=== PATIENT | male | born 1985 | race Caucasian/White ===

== ENCOUNTER 2023-06-15 13:05 | Inpatient (IN) | payer BC ==
[2023-06-15] MEDS ORDERED: AZITHROMYCIN 500 MG INJ IVPB ONE ×2 (13:35→14:30)
[2023-06-15] MEDS ORDERED: NA CHLORIDE 0.9% 1,000 ML ONE ×2 (13:35→14:30)
[2023-06-15] MEDS ORDERED: NA CHLORIDE 0.9% 250 ML ONE ×2 (13:35→14:30)
[2023-06-15] MEDS ORDERED: CEFTRIAXONE 1000 MG/VIAL ONE ×2 (13:35→14:30)
[2023-06-15] MEDS ORDERED: METHYLPREDNISOLONE 125 MG INJ ONE (13:35)
[2023-06-15] MEDS ORDERED: HYDROCODONE/CHLORPHEN 5 ML/OSYR ONE (13:35)
[2023-06-15 13:49] LABS: Absolute Lymphocytes (CBC) 1.8 K/uL (0.7-4.9); Hematocrit 43.2 % (39.6-49.0); Lymphocytes % 11.9 % (15.3-44.8); MCV 82.9 fL (80-100); MPV 9.1 fL (7.6-11.3); Platelets 123 thou/uL (152-406); RBC Red Blood Cell Count 5.21 M/uL (4.33-5.43)
[2023-06-15] MEDS ORDERED: ONDANSETRON 4 MG/2 ML VIAL ONE (13:49)
--- NOTE | 2023-06-15 13:59 | EDPHYS ---
Physician Documentation [facility] Name: Juan Avila Age: 37 yrs Sex: Male : 1985 Arrival Date: 06/15/2023 Time: 13:05 Bed 5 Private MD: ED Physician Jose Oliver HPI: 06/15 13:52 This 37 yrs old Male presents to ER via Ambulatory with complaints of paige Shortness Of Breath. 13:52 The patient has shortness of breath with light activity. Onset: The symptoms/episode paige began/occurred 3 day(s) ago. Duration: The symptoms are continuous, and are steadily getting worse. The patient's shortness of breath is aggravated by coughing, walking, is alleviated by elevating head, nebulizer treatment, application of supplemental oxygen. Associated signs and symptoms: Pertinent positives: non-productive cough, dizziness, fever. Severity of symptoms: At their worst the symptoms were mild moderate in the emergency department the symptoms are unchanged. The patient has experienced similar episodes in the past, a few times. Historical: - Allergies: 13:18 No Known Allergies; iw - Home Meds: 13:18 None [Active]; iw - PMHx: 13:18 None; iw - PSHx: 13:18 Appendectomy; iw - Immunization history:: Adult Immunizations not up to date. - Social history:: Smoking status: Patient reports the use of cigarette tobacco products. ROS: 13:53 Constitutional: Negative for fever, chills, and weight loss, Eyes: Negative for injury, paige pain, redness, and discharge, ENT: Negative for injury, pain, and discharge, Neck: Negative for injury, pain, and swelling, Cardiovascular: Negative for chest pain, palpitations, and edema, Abdomen/GI: Negative for abdominal pain, nausea, vomiting, diarrhea, and constipation, Back: Negative for injury and pain, : Negative for injury, bleeding, discharge, and swelling, MS/Extremity: Negative for injury and deformity, Skin: Negative for injury, rash, and discoloration, Neuro: Negative for headache, weakness, numbness, tingling, and seizure, Psych: Negative for depression, anxiety, suicide ideation, homicidal ideation, and hallucinations, Allergy/Immunology: Negative for hives, rash, and allergies, Endocrine: Negative for neck swelling, polydipsia, polyuria, polyphagia, and marked weight changes, Hematologic/Lymphatic: Negative for swollen nodes, abnormal bleeding, and unusual bruising, 13:53 Respiratory: Positive for cough, "sounds productive", Exam: 13:53 Constitutional: This is a well developed, well nourished patient who is awake, alert, paige and in no acute distress. Head/Face: Normocephalic, atraumatic. Eyes: Pupils equal round and reactive to light, extra-ocular motions intact. Lids and lashes normal. Conjunctiva and sclera are non-icteric and not injected. Cornea within normal limits. Periorbital areas with no swelling, redness, or edema. ENT: Nares patent. No nasal discharge, no septal abnormalities noted. Tympanic membranes are normal and external auditory canals are clear. Oropharynx with no redness, swelling, or masses, exudates, or evidence of obstruction, uvula midline. Mucous membranes moist. Neck: Trachea midline, no thyromegaly or masses palpated, and no cervical lymphadenopathy. Supple, full range of motion without nuchal rigidity, or vertebral point tenderness. No Meningismus. Chest/axilla: Normal chest wall appearance and motion. Nontender with no deformity. No lesions are appreciated. Cardiovascular: Regular rate and rhythm with a normal S1 and S2. No gallops, murmurs, or rubs. Normal PMI, no JVD. No pulse deficits. Abdomen/GI: Soft, non-tender, with normal bowel sounds. No distension or tympany. No guarding or rebound. No evidence of tenderness throughout. Back: No spinal tenderness. No costovertebral tenderness. Full range of motion. Male : Normal genitalia with no discharge or lesions. Skin: Warm, dry with normal turgor. Normal color with no rashes, no lesions, and no evidence of cellulitis. MS/ Extremity: Pulses equal, no cyanosis. Neurovascular intact. Full, normal range of motion. Neuro: Awake and alert, GCS 15, oriented to person, place, time, and situation. Cranial nerves II-XII grossly intact. Motor strength 5/5 in all extremities. Sensory grossly intact. Cerebellar exam normal. Normal gait. Psych: Awake, alert, with orientation to person, place and time. Behavior, mood, and affect are within normal limits. 13:53 Respiratory: the patient does not display signs of respiratory distress, Respirations: normal, Breath sounds: decreased breath sounds, rhonchi, stridor, is not appreciated, wheezing: expiratory Respiratory rate: 20 Vital Signs: 13:18 BP 104 / 87; Pulse 92; Resp 20; Temp 97.9; Pulse Ox 93% on R/A; Weight 102.06 kg; iw Height 5 ft. 9 in. ; 14:00 BP 115 / 74; Pulse 79; Resp 18; Pulse Ox 91% on 2 lpm NC; hb 15:06 BP 119 / 83; Pulse 74; Resp 15; Pulse Ox 90% on 2 lpm NC; hb 16:47 BP 115 / 78; Pulse 92; Resp 19; Pulse Ox 95% on 3 lpm NC; ko1 13:18 Body Mass Index 33.23 (102.06 kg, 175.26 cm) iw 15:06 increased to 3LNC hb MDM: 13:08 Patient medically screened. paige 13:55 Differential diagnosis: Bronchitis pneumonia, Pulmonary Embolism reactive airway paige disease, Sepsis. Antibiotic administration: Rocephin and Zithromax given. Differential Diagnosis: Obstructed Airway Bronchitis Influenza Upper Respiratory Infection Sinusitis Pharyngitis Otitis Media Asthma Exacerbation Viral Syndrome Pneumonia Tracheal Injury. Immunization status:. Data reviewed: vital signs, nurses notes, lab test result(s), radiologic studies, CT scan, plain films. Consideration of Admission/Observation Patient was admitted/placed on observation. Escalation of care including admission/observation considered. I considered the following discharge prescriptions or medication management in the emergency department Medications were administered in the Emergency Department. See MAR. Independent interpretation of the following test(s) in the Emergency Department X-Ray: My interpretation is multifocal pna. Test considered but Not performed: EKG: no ekg. Care significantly affected by the following chronic conditions: none. Counseling: I had a detailed discussion with the patient and/or guardian regarding the historical points, exam findings, and any diagnostic results supporting the discharge/admit diagnosis, lab results, radiology results, the need for further work-up and treatment in the hospital. 06/15 13:11 Order name: CBC with Diff [facility] 06/15 13:11 Order name: Comprehensive Metabolic Panel; Complete Time: 14:32 [facility] 06/15 13:11 Order name: Blood Culture Adult (2) [facility] 06/15 13:11 Order name: Lactate w/ 2H reflex if indic.; Complete Time: 14:32 [facility] 06/15 13:11 Order name: SARS RAPID; Complete Time: 15:04 paige 06/15 13:11 Order name: Flu; Complete Time: 15:04 [facility] 06/15 13:52 Order name: CBC Smear Scan EDMS 06/15 15:16 Order name: Basic Metabolic Panel ED[facility] 06/15 15:16 Order name: Basic Metabolic Panel EDMS 06/15 15:16 Order name: Basic Metabolic Panel EDMS 06/15 15:16 Order name: Basic Metabolic Panel EDMS 06/15 15:16 Order name: Basic Metabolic Panel EDMS 06/15 15:16 Order name: Basic Metabolic Panel EDMS 06/15 15:16 Order name: CBC with Automated Diff EDMS 06/15 15:16 Order name: CBC with Automated Diff EDMS 06/15 15:16 Order name: CBC with Automated Diff EDMS 06/15 15:16 Order name: CBC with Automated Diff EDMS 06/15 15:16 Order name: CBC with Automated Diff EDMS 06/15 15:16 Order name: CBC with Automated Diff EDMS 06/15 15:16 Order name: Magnesium EDMS 06/15 15:16 Order name: Magnesium EDMS 06/15 15:16 Order name: Magnesium EDMS 06/15 15:16 Order name: Magnesium EDMS 06/15 15:16 Order name: Magnesium EDMS 06/15 15:16 Order name: Magnesium EDMS 06/15 15:16 Order name: Phosphorus EDMS 06/15 15:16 Order name: Phosphorus EDMS 06/15 15:16 Order name: Phosphorus EDMS 06/15 15:16 Order name: Phosphorus EDMS 06/15 15:16 Order name: Phosphorus EDMS 06/15 15:16 Order name: Phosphorus EDMS 06/15 13:11 Order name: Chest Single View XRAY; Complete Time: 15:04 [facility] 06/15 13:11 Order name: CT Chest For PE Angio; Complete Time: 15:04 [facility] Administered Medications: 13:34 Drug: NS 0.9% IV 1000 ml IV at 1 bolus Per protocol; 1000 mL bolus Route: IV; Rate: 1 hb bolus; Site: right antecubital; 14:40 Follow up: Response: No adverse reaction; IV Status: Completed infusion; IV Intake: hb 1000ml 13:34 Drug: Tussionex Pennkinetic ER PO Suspension 5 ml PO once Route: PO; hb 14:30 Follow up: Response: No adverse reaction hb 13:34 Not Given (Already taking PO RX, cancel per Dr Oliver): [id number] mg IVPB once hb over 1 hrs; mix in 250 mL NS 13:34 Drug: MethylPrednisoLONE IVP 125 mg IVP once Route: IVP; Site: right antecubital; hb 14:10 Follow up: Response: No adverse reaction hb 13:37 Drug: Ondansetron IVP 4 mg IVP once; over 2 minutes Route: IVP; Site: right antecubital;hb 14:12 Drug: Rocephin IV 1 grams IV at per protocol once; Given slow IV push per pharmacy hb instructions Route: IV; Rate: per protocol; Site: right antecubital; 14:15 Follow up: Response: No adverse reaction; IV Status: Completed infusion; IV Intake: 10mlhb 14:12 Drug: Rocephin IV 1 grams IV at per protocol once; Given slow IV push per pharmacy hb instructions Route: IV; Rate: per protocol; Site: right antecubital; 14:40 Follow up: Response: No adverse reaction; IV Status: Completed infusion; IV Intake: 50mlhb 14:12 Drug: NS 0.9% IV 1000 ml IV at 1 bolus Per protocol; 1000 mL bolus Route: IV; Rate: 1 hb bolus; Site: right antecubital; 15:08 Drug: Zithromax IVPB 500 mg IVPB once over 1 hrs; mix in 250 mL NS Route: IVPB; Infused hb Over: 1 hrs; Site: right antecubital; 16:26 Drug: vancoMYCIN IVPB 1.5 grams IVPB at calculated rate once Route: IVPB; Rate: hb calculated rate; Site: right antecubital; 16:54 Drug: Potassium PO Effervescent Tablet 50 mEq PO once; dissolve in 4 ounces of water or ko1 juice Route: PO; Disposition Summary: 06/15/23 13:59 Hospitalization Ordered Notes: Hospitalization Status: Inpatient Admission paige Provider: Lisa Warren cha Location: Telemetry/MedSurg (Inpatient) paige Condition: Stable paige Problem: new paige Symptoms: have improved paige Bed/Room Type: Standard [facility] Room Assignment: 207(06/15/23 15:52) eb Diagnosis - Cough paige - Hypoxemia paige - Pneumonia due to other specified bacteria - multifocal, failed outpt(06/15/23 14:01)paige - Elevated white blood cell count paige - Hypokalemia paige Forms: - Medication Reconciliation Form paige - SBAR form paige - Leadership Thank You Letter paige Signatures: Dispatcher [employer] Jose Milligan MD MD cha Williams, Irene, RN Maureen Durán RN RN Juana Lopez Kathy, RN RN ko1 Corrections: (The following items were deleted from the chart) 14:01 13:59 Pneumonia due to other specified bacteria - multifocal paige paige 15:52 13:59 paige eb
--- NOTE | 2023-06-15 13:59 | ER ---
Nurse's Notes [facility] Name: Juan Avila Age: 37 yrs Sex: Male : 1985 Arrival Date: 06/15/2023 Time: 13:05 Bed 5 Private MD: Diagnosis: Pneumonia due to other specified bacteria-multifocal, failed outpt;Cough;Hypoxemia;Elevated white blood cell count;Hypokalemia Presentation: 06/15 13:15 Chief complaint: Patient states: was diagnosed with flu/pneumonia on Saturday at urgent iw care , was prescribed a zpack and steroids, cough is getting worse, still does not feel good, feels SOB and is sweaty. Coronavirus screen: Client presents with at least one sign or symptom that may indicate coronavirus-19. Ebola Screen: Patient negative for fever greater than or equal to 101.5 degrees Fahrenheit, and additional compatible Ebola Virus Disease symptoms Patient denies exposure to infectious person. Patient denies travel to an Ebola-affected area in the 21 days before illness onset. No symptoms or risks identified at this time. Initial Sepsis Screen: Does the patient meet any 2 criteria? No. Patient's initial sepsis screen is negative. Does the patient have a suspected source of infection? No. Patient's initial sepsis screen is negative. Risk Assessment: Do you want to hurt yourself or someone else? Patient reports no desire to harm self or others. Onset of symptoms was June 15, 2023. 13:15 Method Of Arrival: Ambulatory iw 13:15 Acuity: CECE 3 iw Historical: - Allergies: 13:18 No Known Allergies; iw - Home Meds: 13:18 None [Active]; iw - PMHx: 13:18 None; iw - PSHx: 13:18 Appendectomy; iw - Immunization history:: Adult Immunizations not up to date. - Social history:: Smoking status: Patient reports the use of cigarette tobacco products. Screenin:45 [facility] ED Fall Risk Assessment (Adult) Score/Fall Risk Level 0 - 2 = Low Risk hb Oriented to surroundings, Maintained a safe environment. Abuse screen: Denies threats or abuse. Denies injuries from another. Nutritional screening: No deficits noted. Tuberculosis screening: No symptoms or risk factors identified. Assessment: 14:00 General: Appears in no apparent distress. Behavior is calm, cooperative. Pain: Pain hb currently is 3 out of 10 on a pain scale. Neuro: Level of Consciousness is awake, alert, obeys commands, Oriented to person, place, time, situation. Cardiovascular: Patient's skin is warm and dry. Respiratory: Reports shortness of breath cough that is Respiratory effort is even, unlabored, Respiratory pattern is regular, symmetrical. GI: Reports nausea. : No signs and/or symptoms were reported regarding the genitourinary system. EENT: No signs and/or symptoms were reported regarding the EENT system. Derm: Skin is pink, warm \T\ dry. Musculoskeletal: Reports body aches. 15:07 Reassessment: Patient appears in no apparent distress at this time. No changes from hb previously documented assessment. Patient and/or family updated on plan of care and expected duration. Pain level reassessed. Vital Signs: 13:18 BP 104 / 87; Pulse 92; Resp 20; Temp 97.9; Pulse Ox 93% on R/A; Weight 102.06 kg; iw Height 5 ft. 9 in. ; 14:00 BP 115 / 74; Pulse 79; Resp 18; Pulse Ox 91% on 2 lpm NC; hb 15:06 BP 119 / 83; Pulse 74; Resp 15; Pulse Ox 90% on 2 lpm NC; hb 16:47 BP 115 / 78; Pulse 92; Resp 19; Pulse Ox 95% on 3 lpm NC; ko1 13:18 Body Mass Index 33.23 (102.06 kg, 175.26 cm) iw 15:06 increased to 3LNC hb ED Course: 13:07 Patient arrived in ED. rg4 13:08 [facility] jh7 13:08 Jose Oliver MD is Attending Physician. jh7 13:18 Triage completed. iw 13:18 Arm band placed on. iw 13:20 Patient has correct armband on for positive identification. Bed in low position. Call ko1 light in reach. Side rails up X2. Provided Education on: NA. Client placed on continuous cardiac and pulse oximetry monitoring. NIBP monitoring applied. cafeteria monitor on. Door closed. Noise minimized. Lights dimmed. Warm blanket given. 13:20 Inserted saline lock: 20 gauge in right antecubital area, using aseptic technique. ko1 Blood collected. 13:20 No provider procedures requiring assistance completed. ko1 13:35 Flu Sent. ko1 13:35 SARS RAPID Sent. ko1 13:35 Lactate w/ 2H reflex if indic. Sent. ko1 13:35 Blood Culture Adult (2) Sent. ko1 13:35 Comprehensive Metabolic Panel Sent. ko1 13:35 CBC with Diff Sent. ko1 13:37 Wilma Boucher, RN is Primary Nurse. ko1 13:41 Chest Single View XRAY In Process Unspecified. EDMS 13:58 Lisa Warren MD is Hospitalizing Provider. paige 14:40 CT Chest For PE Angio In Process Unspecified. EDMS 16:49 Patient admitted, IV remains in place. ko1 Administered Medications: 13:34 Drug: NS 0.9% IV 1000 ml IV at 1 bolus Per protocol; 1000 mL bolus Route: IV; Rate: 1 hb bolus; Site: right antecubital; 14:40 Follow up: Response: No adverse reaction; IV Status: Completed infusion; IV Intake: hb 1000ml 13:34 Drug: Tussionex Pennkinetic ER PO Suspension 5 ml PO once Route: PO; hb 14:30 Follow up: Response: No adverse reaction hb 13:34 Not Given (Already taking PO RX, cancel per Dr Oliver): mg IVPB once hb over 1 hrs; mix in 250 mL NS 13:34 Drug: MethylPrednisoLONE IVP 125 mg IVP once Route: IVP; Site: right antecubital; hb 14:10 Follow up: Response: No adverse reaction hb 13:37 Drug: Ondansetron IVP 4 mg IVP once; over 2 minutes Route: IVP; Site: right antecubital;hb 14:12 Drug: Rocephin IV 1 grams IV at per protocol once; Given slow IV push per pharmacy hb instructions Route: IV; Rate: per protocol; Site: right antecubital; 14:15 Follow up: Response: No adverse reaction; IV Status: Completed infusion; IV Intake: 10mlhb 14:12 Drug: Rocephin IV 1 grams IV at per protocol once; Given slow IV push per pharmacy hb instructions Route: IV; Rate: per protocol; Site: right antecubital; 14:40 Follow up: Response: No adverse reaction; IV Status: Completed infusion; IV Intake: 50mlhb 14:12 Drug: NS 0.9% IV 1000 ml IV at 1 bolus Per protocol; 1000 mL bolus Route: IV; Rate: 1 hb bolus; Site: right antecubital; 15:08 Drug: Zithromax IVPB 500 mg IVPB once over 1 hrs; mix in 250 mL NS Route: IVPB; Infused hb Over: 1 hrs; Site: right antecubital; 16:26 Drug: vancoMYCIN IVPB 1.5 grams IVPB at calculated rate once Route: IVPB; Rate: hb calculated rate; Site: right antecubital; 16:54 Drug: Potassium PO Effervescent Tablet 50 mEq PO once; dissolve in 4 ounces of water or ko1 juice Route: PO; Medication: 16:47 VIS not applicable for this client. ko1 Intake: 14:15 IV: 10ml; Total: 10ml. hb 14:40 IV: 50ml; Total: 60ml. hb 14:40 IV: 1000ml; Total: 1060ml. hb Outcome: 13:59 Decision to Hospitalize by Provider. paige 16:49 Admitted to Med/surg accompanied by tech, via wheelchair, room 207, with chart, Report ko1 called to Candace 16:49 Condition: stable 16:49 Discharge instructions given to Instructed on the need for admit, Demonstrated understanding of instructions, 17:23 Patient left the ED. ko1 Signatures: Dispatcher [employer] EDJose Ayers MD MD cha Williams, Irene, RN Maureen Durán RN RN hb Garcia, Rubi rg4 Rhiannon Oro, [employer] jh7 Wilma Boucher RN RN ko1
[2023-06-15 14:08] LABS: Albumin 3.5 g/dL (3.4-5.0); Bilirubin Total 1.4 mg/dL (0.2-1.0); Potassium 3.4 mEq/L (3.5-5.1); Protein, Total 7.5 g/dL (6.4-8.2)
[2023-06-15] MEDS ORDERED: NA CHLORIDE 0.9% 50 ML ONE (14:35)
[2023-06-15 14:43] LABS: SARS-CoV-2 Antigen Rapid Res Negative (Negative)
--- NOTE | 2023-06-15 14:54 | RAD REPORT ---
EXAM DESCRIPTION: CT - Chest For Pe Angio - 06/15/2023 2:39 pm CLINICAL HISTORY: Cough and congestion COMPARISON: None. TECHNIQUE: Dynamically enhanced axial 3 mm thick images of the chest were obtained during administra tion of 100 mL Isovue 370 IV contrast. Coronal and oblique reconstruction images were generated and r eviewed. Exam utilizes a protocol for optimal evaluation of pulmonary arterial tree. Maximum intensity projections 3D imaging was utilized All CT scans are performed using dose optimization technique as appropriate and may include automated exposure control or mA/KV adjustment according to patient size. FINDINGS: A pulmonary embolus is not seen. A thoracic aortic aneurysm is not noted. A pleural effusion is not seen. A pericardial effusion is not seen. Moderate consolidation right upper, right middle and right lower lobes. Mild left lung opacities Fatty liver. Spleen mildly to moderately enlarged IMPRESSION: Negative for a pulmonary embolism. Moderate consolidations right lung likely pneumonia
--- NOTE | 2023-06-15 14:55 | RAD REPORT ---
EXAM DESCRIPTION: Melvin Single View06/15/2023 1:41 pm CLINICAL HISTORY: Cough COMPARISON: none FINDINGS: Moderate alveolar opacities scattered throughout the right lung. Mild left basilar opacities Heart normal size IMPRESSION: Right lung consolidations likely pneumonia
[2023-06-15] MEDS ORDERED: ONDANSETRON 4 MG/2 ML VIAL IV PRN (15:11)
[2023-06-15 15:29] LABS: Blood Morphology Comment NOT SEEN (NOT SEEN); Platelet Estimate DECR; White Blood Cell Scan OK (OK)
[2023-06-15] MEDS ORDERED: MORPHINE 2 MG/ML SYR IV PRN (15:54)
[2023-06-15] MEDS: ENOXAPARIN 40 MG/0.4 ML SQ SCH (16:00)
[2023-06-15] MEDS ORDERED: VANCOMYCIN 1.5 GM in NA CHLORIDE 0.9% 500 ML IVPB ONE (16:00)
--- NOTE | 2023-06-15 16:03 | P.HP ---
Patient History Date of Service: 06/15/23 Reason for admission: SOB cough PNA History of Present Illness: Juan Avila is a 37-year-old male with past medical history of smoking abuse for 20 years (quit this week) who presented to the ED complaining of body aches, fever, flu like symptoms, cough, shortness of breath, headache, chest pain when coughing, nausea vomiting. Juan reports onset of symptoms was on Saturday and was feeling bad through the week and went to the urgent care on Saturday where he was diagnosed with flu and given oseltamavir. He started to feel better by Saturday when he went to work and immediately felt worse again then headed back to the urgent care where he was diagnosed with pneumonia and prescribed a Z-Bk, prednisone, and albuterol. Juan presents today, continuing to feel worse, has failed outpatient antibiotic therapy. On examination Juan is in mild distress, on 2 L nasal cannula satting 93%, bilateral expiratory wheezing with rhonchi, is afebrile. Initial vitals BP 104/87, pulse 92, respiration 20, temperature 97.9, oxygen saturation 93% on room air. Significant labs WBC 14.8, sodium 133, potassium 3.4, lactic acid 1.1. Chest x-ray reports "Right lung consolidations likely pneumonia." CT chest angio reports "Negative for a pulmonary embolism. Moderate consolidations right lung likely pneumonia". Juan will be admitted to hospitalist service for further evaluation and treatment. Allergies No Known Allergies Allergy (Unverified 06/15/23 17:37) Review of Systems General: Fever, Chills, Weakness, Malaise, Other (headache) Respiratory: Cough, Shortness of Breath Cardiovascular: Chest Pain (when coughing) Gastrointestinal: Nausea, Vomiting Physical Examination - Physical Exam General: Alert, In no apparent distress, Oriented x3, Acute distress HEENT: Atraumatic, Normocephalic, PERRLA Neck: Supple, 2+ carotid pulse no bruit, JVD not distended Respiratory: Normal air movement, Expiratory wheezes, Rhonchi/gurgles Cardiovascular: No edema, Normal pulses, Regular rate/rhythm, Normal S1 S2 Capillary refill: <2 Seconds Gastrointestinal: Normal bowel sounds, Soft and benign Musculoskeletal: No clubbing, No swelling, No contractures, No erythema Integumentary: No rashes, No breakdown, No significant lesion, No tenderness/ swelling Neurological: Normal speech, Normal strength at 5/5 x4 extr, Normal tone - Studies Laboratory Data (last 24 hrs) 06/15/23 06/15/23 13:27 13:27 WBC 14.80 H Hgb 15.4 Hct 43.2 Plt Count 123 L Sodium 133 L Potassium 3.4 L BUN 17 Creatinine 1.19 Glucose 114 H Total Bilirubin 1.4 H AST 67 H ALT 62 H Alkaline Phosphatase 77 Microbiology Data (last 24 hrs): 06/15/23 13:29 Nasopharnyx Influenza Type A Antigen Screen - Final 06/15/23 13:29 Nasopharnyx Influenza Type B Antigen Screen - Final Assessment and Plan - Plan Assessment and plan Right sided pneumonia Leukocytosis Cough Chest x-ray reports "Right lung consolidations likely pneumonia." CT chest angio reports "Negative for a pulmonary embolism. Moderate consolidations right lung likely pneumonia" Vancomycin, steroids, albuterol given in ED continue Vancomycin ipratropium steroids Tessalon Perle morphine IVF Fatty liver Splenomegaly Incidental finding on CT chest Angio no acute finding, follow up outpatient DVT ppx lovenox Full code LOS 2-3 days Discharge Plan: Home Plan to discharge in: 48 Hours - Advance Directives Does patient have a Living Will: No Does patient have a Durable POA for Healthcare: No Time Spent Managing Pts Care (In Minutes): 55
[2023-06-15] MEDS ORDERED: POTASSIUM 25 MEQ EFFERV TAB ONE (17:10)
[2023-06-15 17:23] VITALS: BMI 33.2
[2023-06-15] MEDS: NA CHLORIDE 0.9% 1,000 ML IV SCH (17:48)
[2023-06-15] MEDS: BENZONATATE 100 MG CAP PO PRN (17:48)
[2023-06-15] MEDS: METHYLPREDNISOLONE 125 MG INJ IV SCH (21:45)
[2023-06-16] MEDS: IPRATROPIUM BROM 0.5MG/2.5ML NEB PRN ×2 (02:01→16:10)
[2023-06-16] MEDS ORDERED: VANCOMYCIN 1.5 GM in NA CHLORIDE 0.9% 500 ML IVPB SCH ×2 (05:00→18:00)
[2023-06-16] MEDS ORDERED: NA CHLORIDE 0.9% 500 ML ONE (06:30)
[2023-06-16] MEDS ORDERED: VANCOMYCIN 1 GM/VIAL ONE (06:30)
[2023-06-16] MEDS ORDERED: VANCOMYCIN 500 MG/VIAL ONE (06:30)
[2023-06-16] MEDS: NA CHLORIDE 0.9% 1,000 ML IV SCH ×4 (08:02→22:00)
[2023-06-16] MEDS: METHYLPREDNISOLONE 125 MG INJ IV SCH ×2 (08:02→21:10)
[2023-06-16] MEDS: ENOXAPARIN 40 MG/0.4 ML SQ SCH (08:02)
[2023-06-16] MEDS: BENZONATATE 100 MG CAP PO PRN (08:02)
[2023-06-16 08:20] LABS: Absolute Lymphocytes (CBC) 0.8 K/uL (0.7-4.9); Hematocrit 41.8 % (39.6-49.0); Lymphocytes % 6.2 % (15.3-44.8); MCV 85.4 fL (80-100); MPV 9.6 fL (7.6-11.3); Platelets 124 thou/uL (152-406); RBC Red Blood Cell Count 4.89 M/uL (4.33-5.43)
[2023-06-16 08:34] LABS: Magnesium 2.1 mg/dL (1.6-2.4); Phosphorus 2.3 mg/dL (2.5-4.9); Potassium 3.9 mEq/L (3.5-5.1)
[2023-06-16] MEDS: VANCOMYCIN 1.5 GM in NA CHLORIDE 0.9% 500 ML IVPB SCH (17:15)
[2023-06-16] MEDS ORDERED: Levofloxacin500mg IV 500 MG/100 ML BAG IV SCH (21:00)
[2023-06-17] MEDS: METHYLPREDNISOLONE 125 MG INJ IV SCH ×2 (02:01→10:00)
[2023-06-17] MEDS: BENZONATATE 100 MG CAP PO PRN (02:07)
[2023-06-17] MEDS: IPRATROPIUM BROM 0.5MG/2.5ML NEB PRN (02:15)
[2023-06-17] MEDS ORDERED: ALBUTEROL 2.5 MG/3 ML NEB SOL NEB PRN ×2 (02:26→12:00)
[2023-06-17 02:52] LABS: Absolute Lymphocytes (CBC) 0.9 K/uL (0.7-4.9); Lymphocytes % 5.7 % (15.3-44.8); MCV 85.6 fL (80-100); MPV 9.7 fL (7.6-11.3); Platelets 166 thou/uL (152-406); RBC Red Blood Cell Count 4.55 M/uL (4.33-5.43)
[2023-06-17 03:05] LABS: Albumin 2.7 g/dL (3.4-5.0); Bilirubin Total 0.5 mg/dL (0.2-1.0); Magnesium 2.1 mg/dL (1.6-2.4); Phosphorus 2.5 mg/dL (2.5-4.9); Protein, Total 6.3 g/dL (6.4-8.2)
[2023-06-17] MEDS: NA CHLORIDE 0.9% 1,000 ML IV SCH ×2 (06:10→08:00)
[2023-06-17] MEDS: VANCOMYCIN 1.5 GM in NA CHLORIDE 0.9% 500 ML IVPB SCH (06:11)
--- NOTE | 2023-06-17 06:14 | P.PN ---
Date of Service: 06/16/23 Subjective Patient is doing well no new complaints. Cough and congestion has been improved. However, he still feeling weak and lethargic. Physical Examination -Vitals Reviewed -Physical Exam General: Alert, In no apparent distress, Oriented x3, Acute distress Respiratory: Dry crackles on the right side. Cardiovascular: Regular rate/rhythm, Normal S1 S2 Gastrointestinal: Normal bowel sounds, Soft and benign Musculoskeletal: No clubbing, No swelling, No contractures, No erythema Integumentary: No significant abnormalities Neurological: No focal deficits Assessment and Plan - Assessment and Plan Assessment and plan -Community-acquired pneumonia Continue with antibiotic therapy. Continue with nebs and steroids. Patient procalcitonin level pending. Chest x-ray is pending. Fatty liver Splenomegaly Monitor LFTs. DVT ppx lovenox Full code LOS 2-3 days Discharge Plan: Home Plan to discharge in: 48 Hours - Advance Directives Does patient have a Living Will: No Does patient have a Durable POA for Healthcare: No Time Spent Managing Pts Care (In Minutes): 55
[2023-06-17] MEDS ORDERED: IPRATROPIUM BROM 0.5MG/2.5ML NEB SCH (08:00)
[2023-06-17] MEDS ORDERED: ALBUTEROL 2.5 MG/3 ML NEB SOL NEB SCH (08:00)
[2023-06-17] MEDS: ENOXAPARIN 40 MG/0.4 ML SQ SCH (09:00)
--- NOTE | 2023-06-17 09:11 | RAD REPORT ---
EXAM DESCRIPTION: Melvin Single View06/17/2023 4:28 am CLINICAL HISTORY: Chest pain COMPARISON: June 15, 2023 FINDINGS: Partial resolution in right lung opacities. The left lung opacity appears resolved Heart is normal size IMPRESSION: Improvement in the pneumonia
[2023-06-17 09:25] VITALS: TEMP 98.5; O2SAT 94
[2023-06-17 11:43] VITALS: BP 115/63
[2023-06-17] MEDS ORDERED: Levofloxacin 750mg IV 750 MG/150 ML BAG IV SCH (16:00)
--- NOTE | 2023-06-17 21:20 | P.DS ---
Admission Date: 06/15/23 Discharge Date: 06/19/23 Disposition: ROUTINE DISCHARGE Discharge Condition: FAIR Reason for Admission: SOB cough PNA Hospital Course: Patient is a 37-year-old male with past medical history of Nicotine dependence who presented with complaints of body aches, fever, flu like symptoms, cough, shortness of breath, headache, chest pain with associated signs and symptoms of nausea, vomiting and Generalized malaise. Patient was seen placed at the urgent care facility where he was diagnosed with flu and pneumonia. Patient had failed outpatient therapy. Patient was placed on antibiotics, neb treatment and Te ssalon wilmar On presentation to the hospital after being diagnosed with pneumonia. Overtime, patient clinical symptoms improved. Patient was also counseled about tobacco cessation. Patient was deemed stable to be discharged. Patient was send home with scripts for antibiotics, steroid and Tessalon pear. Patient instructed to follow-up with his PCP. Patient verbalized understanding of discharge instructions and was discharged in stable condition . Vital Signs/Physical Exam: Temp Pulse Resp BP Pulse Ox 98.5 F 67 16 115/63 92 06/17/23 11:42 06/17/23 11:42 06/17/23 11:42 06/17/23 11:42 06/17/23 11:42 Laboratory Data at Discharge: WBC 15.30 thou/uL (4.3-10.9) H 06/17/23 01:50 Hgb 13.6 g/dL (13.6-17.9) 06/17/23 01:50 Hct 39.0 % (39.6-49.0) L 06/17/23 01:50 Plt Count 166 thou/uL (152-406) D 06/17/23 01:50 Sodium Cancelled 06/17/23 06:00 Potassium Cancelled 06/17/23 06:00 BUN Cancelled 06/17/23 06:00 Creatinine Cancelled 06/17/23 06:00 Glucose Cancelled 06/17/23 06:00 Phosphorus 2.5 mg/dL (2.5-4.9) 06/17/23 01:50 Magnesium 2.1 mg/dL (1.6-2.4) 06/17/23 01:50 Total Bilirubin Cancelled 06/17/23 06:00 AST Cancelled 06/17/23 06:00 ALT Cancelled 06/17/23 06:00 Alkaline Phosphatase Cancelled 06/17/23 06:00 Home Medications: Benzonatate [Tessalon Perle*] 100 mg PO Q6H PRN #30 cap 06/17/23 levoFLOXacin [Levaquin] 750 mg PO DAILY #7 tab 06/17/23 predniSONE [Prednisone] 20 mg PO DAILY 5 Days #5 tab 06/17/23 New Medications: levoFLOXacin [Levaquin] 750 mg PO DAILY #7 tab predniSONE [Prednisone] 20 mg PO DAILY 5 Days #5 tab Benzonatate [Tessalon Perle*] 100 mg PO Q6H PRN #30 cap PRN Reason: Cough Followup: NONE,NONE [Primary Care Provider] - 1-2 Weeks (Call for appointment.)
== END 2023-06-17 12:00 | disposition home or self-care (01) | DRG 195 ==
LOC: ER 13:05 → ERHOLD 15:16 → 2ND 17:10
PROVIDERS: ADMIT Hospitalist; ATTEND Hospitalist
DX: J18.9 Pneumonia, unspecified organism (principal); E87.6 Hypokalemia; K76.0 Fatty (change of) liver, not elsewhere classified; F17.210 Nicotine dependence, cigarettes, uncomplicated; R16.1 Splenomegaly, not elsewhere classified; Z71.6 Tobacco abuse counseling; Z90.49 Acquired absence of other specified parts of digestive tract; Z11.52 Encounter for screening for COVID-19; Z79.52 Long term (current) use of systemic steroids; Z79.899 Other long term (current) drug therapy
CPT/HCPCS: 36415; 71045; 71275; 80048; 80053; 80202; 82947; 83605; 83735; 84100; 84145; 85025; 87040; 87804; 87811; 94010; 94640; 96361; 96365; 96375; 99285; J0696; J1650; J2405; J2930; J7030; J7040; J7050; J7613; J7644; Q9967